=== PATIENT | female | born 1990 | race African-American/Black ===

== ENCOUNTER 2016-04-06 17:55 | Emergency (ER) | payer OTHER ==
[~2016-04-06] VITALS: Ht 165.1 cm; Wt 163.3 kg
[~2016-04-06 17:55] MED LIST: BENTYL20 MG PO; ZOFRAN ODT4 MG SL
[2016-04-06 18:06] VITALS: BP 137/88
--- NOTE | 2016-04-06 19:31 | ED THROAT/DENTAL COMPLAINT ---
History of Present Illness General Chief Complaint: Sore Throat, Dental Pain Stated Complaint: BIBA TOOTH ACHE/EAR ACHE X 2 DAYS Source: patient, family, old records Exam Limitations: DOWN'S SYNDROME Vital Signs & Intake/Output Vital Signs & Intake/Output Vital Signs Date Time Temp Pulse Resp B/P Pulse O2 O2 Flow FiO2 Ox Delivery Rate 04/06 1806 98.1 100 20 137/88 99 Room Air Allergies Coded Allergies: NO KNOWN ALLERGIES (04/06/16) Reconcile Medications Amoxicillin 250 MG CAPSULE 1 CAP PO TID DENTAL INFECTION Oxycodone HCl/Acetaminophen (Percocet 5-325 MG Tablet) 5 MG-325 MG TABLET 1-2 TAB PO Q6P PRN PAIN Triage Note: TRIAGE: PT CHAYA TO ER FROM HOME WITH SISTER C/C L EAR PAIN AND DENTAL PAIN X 2 DAYS. HAS BEEN MEDICATED WTIH IBUPROFEN BUT "IT'S NOT HELPING". Triage Nurses Notes Reviewed? yes : No Patient currently breastfeeds: No HPI: Patient [place] for evaluation by her family for left tooth pain that radiated into her ear. Pain started yesterday. Pain is unrelieved with Motrin. The pain is constant. Patient cannot rate the pain. There are no aggravating factors. There are no fevers or chills. There is no nausea or vomiting. There is no difficulty swallowing or breathing. Past History Travel History Traveled to [place] past 21 day No Medical History Any Pertinent Medical History? 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 No Review of Systems Review of Systems Constitutional: Reports: no symptoms. EENTM: Reports: see HPI, ear pain, tooth pain. Respiratory: Reports: no symptoms. Cardiovascular: Reports: no symptoms. GI: Reports: no symptoms. Neurological/Psychological: Reports: no symptoms. Immunologic/Allergic: Reports: no symptoms. Physical Exam Physical Exam General Appearance: well developed/nourished, alert, awake Head: atraumatic Ears: Bilateral: other (see below). Mouth/Throat: ERYTHEMA AROUND LEFT LOWER MOLAR BUT NO FLUCTUANCE Cardiovascular/Respiratory: normal breath sounds, normal peripheral pulses, regular rate/rhythm, no respiratory distress Neurologic/Psych: no motor/sensory deficits, awake, oriented x 3 Comments: PT WILL ALLOW EXTERNAL VISULIZATION OF EAR ONLY. MULTIPLE ATTEMPTS MADE TO INSPECT EAR CANAL AND TM BUT PT REFUSED. Core Measures ACS in differential dx? No Severe Sepsis Present: No Septic Shock Present: No Progress Differential Diagnosis: carious tooth, OTITIS MEDIA, OTITIS EXTERNA Plan of Care: Current Medications Sig/Curtis Start time Last Medication Dose Stop Time Status Admin Amoxicillin 250 MG ONCE ONE 04/06 1944 UNVr (Amoxil) 04/06 1945 Oxycodone/ 1 TAB ONCE ONE 04/06 1944 UNVr Acetaminophen 04/06 1945 (Percocet) Departure Departure Disposition: HOME OR SELF CARE Condition: Stable Clinical Impression Primary Impression: Dental infection Referrals: KENDRA KAUFMAN APRN (PCP/Family) Additional Instructions: RETURN IF SYMPTOMS WORSEN OR FOR ANY CONCERNS Departure Forms: Customer Survey General Discharge Information Prescriptions: Current Visit Scripts Amoxicillin 1 CAP PO TID #30 CAP Oxycodone HCl/Acetaminophen (Percocet 5-325 MG Tablet) 1-2 TAB PO Q6P PRN PAIN #20 TAB
[2016-04-06] MEDS ORDERED: AMOXICILLIN250 M3 PO (19:47)
[2016-04-06] MEDS ORDERED: PERCOCET 5-3251 EACH PO (19:47)
== END 2016-04-06 19:59 ==
LOC: ERH 17:55
DX: K04.7 Periapical abscess without sinus (principal)

== ENCOUNTER 2017-09-18 04:37 | Emergency (ER) | payer OTHER ==
[~2017-09-18 04:37] MED LIST changes: +AMOXICILLIN250 M3 PO; +PERCOCET 5-3251 EACH PO; +PROTONIX40 M3 PO
[2017-09-18 04:45] VITALS: BP 180/85
--- NOTE | 2017-09-18 07:36 | ED GENERAL ADULT ---
History of Present Illness General Chief Complaint: Abdominal Pain/Flank Pain Stated Complaint: ABD PAIN Source: patient, family Exam Limitations: no limitations Vital Signs & Intake/Output Vital Signs & Intake/Output Vital Signs Date Time Temp Pulse Resp B/P B/P Pulse O2 O2 Flow FiO2 Mean Ox Delivery Rate 09/18 0445 97.5 88 22 180/85 Allergies Coded Allergies: NO KNOWN ALLERGIES (04/06/16) Reconcile Medications Pantoprazole Sodium (Protonix) 40 MG TABLET.DR 1 TAB PO DAILY PRN gastritis Triage Note: PER FAMILY HX OF GALLSTONES ACUTE RUQ PAIN, WORSENING THIS AM HX OF DOWNS. Triage Nurses Notes Reviewed? yes : No Patient currently breastfeeds: No HPI: 27-year-old woman with past medical history of cholelithiasis status post cholecystectomy (2011) and Down syndrome seen for evaluation of abdominal pain. Collateral information was obtained from the patient's family whom are present during the interview. Patient was in her normal state of health until yesterday when they went to a cookout and she ate some fried food. Throughout the day she has had waxing/waning right upper quadrant abdominal pain. She has had good oral intake of food and water. Patient's family admits that she has had vague complaints over the past several months and would like to "finally get to the bottom of this". Review of systems is unobtainable. (Wil Simms MD) Past History Travel History Traveled to [place] past 21 day No Medical History Any Pertinent Medical History? 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 Yes (Wil Simms MD) Review of Systems Review of Systems Constitutional: Reports: see HPI. (Wil Simms MD) Physical Exam Physical Exam General Appearance: well developed/nourished, no apparent distress, alert, awake , comfortable Comments: General - well developed, well nourished obese -Al[place] woman in no acute distress HEENT - NCAT, PERRL, EOMI, anicteric sclera Neck- Supple, no JVD/HJR, no bruits, trachea midline Cardio - S1, S2 w/o murmurs/gallops/rubs; regular rate and rhythm Resp - Clear to auscultation bilaterally GI - Soft, nontender, nondistended, bowel sounds present Neuro - Awake and alert, CN II - XII grossly intact Extremities - No edema, pulses intact Core Measures ACS in differential dx? No CVA/TIA Diagnosis: No Sepsis Present: No Sepsis Focused Exam Completed? No (Wil Simms MD) Progress Differential Diagnoses I considered the following diagnoses in my evaluation of the patient: cholithiasis, nephrolithiasis, urinary tract infection, pyelonephritis, gastroenteritis Plan of Care: Orders Procedure Date/time Status LACTIC ACID 09/19 811 Active URINALYSIS 09/19 511 Active LIPASE 09/19 511 Active LACTIC ACID 09/19 511 Active COMPREHENSIVE METABOLIC PANEL 09/19 511 Active CBC WITHOUT DIFFERENTIAL 09/19 511 Active Initial ED EKG: none Hand-Off Endorsed To: Aj Samaniego MD Endorsed Time: 0700 Pending: labs Comments: Patient has had vague abdominal complaints over the past several months. This episode is precipitated by consumption of fatty fried foods at a barbecue. Patient has vital signs within normal limits. Physical examination is unremarkable including a soft, nontender, nondistended abdomen. Patient has been given 4 mg of oral Ativan in order to attempt a blood draw given her history of aggression and Down syndrome. Patient has been unable to provide a urine sample. Patient signed out to Dr. Aj Samaniego at 0700 (Wil Simms MD) Differential Diagnoses I considered the following diagnoses in my evaluation of the patient: (Cedrick Patton DO) Comments: Attempted to draw the labs multiple times however he should've the family refused. Patient tolerating fluids easily by mouth in the emergency department. No vomiting. Family and patient walked out of the emergency department prior to completing evaluation. (Aj Samaniego MD) Departure Departure Condition: Stable Clinical Impression Primary Impression: Abdominal pain Referrals: Genie Summers APRN (PCP/Family) Departure Forms: Customer Survey General Discharge Information (Wil Simms MD) Departure Comments I saw and personally evaluated the patient and I agree with Dr. Delvalle's evaluation. Epigastric and right upper quadrant abdominal pain. Mild epigastric tenderness on my exam. Labs were pending. She was given Ativan to assist in phlebotomy. She has Down syndrome and anxiety. The patient was signed out to Dr. Samaniego at 7 AM. (Abdi BRUCE,Cedrick Carroll) Departure Disposition: ER WALKOUT Additional Instructions: Patient family walked out of the emergency department without anybody that they were leaving. (Danette THOMPSON,Aj Talbot) Critical Care Note Critical Care Note Critical Care Time: non-applicable (Mendez THOMPSON,Wil)
== END 2017-09-18 08:56 ==
LOC: ERH 04:37
DX: R10.11 Right upper quadrant pain (principal)